=== PATIENT | female | born 1995 | race Caucasian/White ===

== ENCOUNTER 2019-10-30 16:43 | Emergency (ER) | payer BC ==
[~2019-10-30] VITALS: Ht 167.6 cm; Wt 56.0 kg
[2019-10-30 16:50] VITALS: BP 152/86
--- NOTE | 2019-10-30 17:08 | PHYS DOC ---
General Adult EDM: Chief Complaint: COUGH HPI: HPI: ".. I ve been having increase cough.. nothing is coming up.. some fevers.. .. I just feel aches.. tired.. I teach Special Education. And preschool... In the [employer] and they don't do social distancing... 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 Patient states she feels short of breath. No history of previous pulmonary embolisms or coagulopathy. No history of recent travel outside the [facility]. Patient denies any history immunosuppression. Patient follows with Dr. Hilliard. Review of Systems: Review of Systems: Constitutional: History of fever or chills Eyes: Denies change in visual acuity HENT: Denies nasal congestion or sore throat Respiratory: Complains of non-productive cough and shortness of breath Cardiovascular: Denies chest pain or edema GI: Denies abdominal pain, nausea, vomiting, bloody stools or diarrhea : Denies dysuria Musculoskeletal: History of myalgia and arthralgia Integument: Denies rash Neurologic: Denies headache, focal weakness or sensory changes Endocrine: Denies polyuria or polydipsia Lymphatic: Denies swollen glands Psychiatric: Denies depression or anxiety Heart Score: HEART Score for Chest Pain: HEART Score for Chest Pain Response (Comments) Value History Slighlty/Non-Suspicious 0 ECG Normal 0 Age < 45 0 Risk Factors No Risk Factors 0 Troponin < Normal Limit 0 Total 0 Risk Factors: Risk Factors: DM, Current or recent (<one month) smoker, HTN, HLP, family history of CAD, obesity. Risk Scores: Score 0 - 3: 2.5% MACE over next 6 weeks - Discharge Home Score 4 - 6: 20.3% MACE over next 6 weeks - Admit for Clinical Observation Score 7 - 10: 72.7% MACE over next 6 weeks - Early Invasive Strategies Family History: Family History: Noncontributory to presentation Current Medications: Current Meds: See nursing for home meds Allergies: Allergies: No known drug allergies Physical Exam: PE: Constitutional: Well developed, well nourished, moderate acute distress, non- toxic appearance. [] HENT: Normocephalic, atraumatic, bilateral external ears normal, oropharynx moist, no oral exudates, nose swollen turbinates and clear rhinorrhea] Eyes: PERRLA, EOMI, conjunctiva normal, no discharge. [] Neck: Normal range of motion, no tenderness, supple, no stridor. [] Cardiovascular:Heart rate regular rhythm, no murmur [] Lungs & Thorax: Bilateral breath sounds equal apex with scattered wheezes on auscultation [] Abdomen: Bowel sounds normal, soft, no tenderness, no masses, no pulsatile masses. [] Skin: Warm, dry, no erythema, no rash. [] Back: No tenderness, no CVA tenderness. [] Extremities: No tenderness, no cyanosis, no clubbing, ROM intact, no edema. [] No cording appreciated Neurologic: Alert and oriented X 3, normal motor function, normal sensory function, no focal deficits noted. [] Psychologic: Affect anxious, judgement normal, mood normal. [] EKG: EKG: My interpretation EKG shows a sinus rhythm at 87 bpm. No findings acute STEMI or contralateral changes [] Radiology/Procedures: Radiology/Procedures: [[address] [address] IMAGING REPORT Signed PATIENT: ANU CAI ACCOUNT: [id number] : 1995 LOCATION: ER AGE: 24 SEX: F EXAM STATUS: REG ER ORD. PHYSICIAN: ANNELISE MARRERO MD REASON: dyspnea PROCEDURE: CHEST AP ONLY Exam: Chest one view INDICATION: Dyspnea TECHNIQUE: Frontal view of the chest Comparisons: None FINDINGS: The cardiomediastinal silhouette and pulmonary vessels are within normal limits. The lung and pleural spaces are clear. IMPRESSION: No acute cardiopulmonary process. Electronically signed by: Vero Griffith MD (10/30/2019 8:07 PM) [id number] DICTATED AND SIGNED BY: VERO GRIFFITH MD DATE: 10/30/192006 CC: ANNELISE MARRERO MD; CHRISTY ROTHMAN ~ ][address] [address] IMAGING REPORT Signed PATIENT: ANU CAI ACCOUNT: [id number] : 1995 LOCATION: ER AGE: 24 SEX: F EXAM STATUS: REG ER ORD. PHYSICIAN: ANNELISE MARRERO MD REASON: dyspnea PROCEDURE: CHEST AP ONLY Exam: Chest one view INDICATION: Dyspnea TECHNIQUE: Frontal view of the chest Comparisons: None FINDINGS: The cardiomediastinal silhouette and pulmonary vessels are within normal limits. The lung and pleural spaces are clear. IMPRESSION: No acute cardiopulmonary process. Electronically signed by: Vero Griffith MD (10/30/2019 8:07 PM) [id number] DICTATED AND SIGNED BY: VERO GRIFFITH MD DATE: 10/30/192006 CC: ANNELISE MARRERO MD; CHRISTY ROTHMAN ~ Course & Med Decision Making: Course & Med Decision Making Pertinent Labs and Imaging studies reviewed. (See chart for details) Patient self isolate. Suspect patient does have a viral syndrome. Follow-up with primary care. When symptoms resolve and after self-isolation in 2 weeks. Consider getting a rapid COVID testing. Patient to wear a mask covering nose and mouth at all times when outside her home. Must practice social distancing. Follow her schools policy for return to service. Push vitamin C drinks. . Follow-up with urine cultures. Return if any concerns, and becomee markedly tachycardic or hypoxi or dyspnea. Take Keflex 500 mg 3 times a day for urinary tract infection. Use MDI 2 puffs 4 times a day. Follow-up with primary Impression: 1. Viral syndrome- 2. Anemia 3. Urinary tract infection 4. Elevated CRP 13.6 [] Dragon Disclaimer: Miles Disclaimer: This electronic medical record was generated, in whole or in part, using a voice recognition dictation system. Departure Departure: Disposition: 01 HOME/RESIDENCE PRIOR TO ADM Condition: STABLE Referrals: CHRISTY ROTHMAN (PCP) Scripts Albuterol Sulfate (VENTOLIN HFA INHALER) 18 Gm Hfa.aer.ad 2 PUFF IH PRN Q4HRS PRN for FOR ASTHMA for 30 Days, INHALER 0 Refills Prov: ANNELISE MARRERO MD 10/30/19 Cephalexin (KEFLEX) 500 Mg Capsule 500 MG PO TID for UTI for 7 Days, BOX Prov: ANNELISE MARRERO MD 10/30/19 Justification of Admission: Justification of Admission: Justification of Admission Dx: N/A Dragon Disclaimer This chart was dictated in whole or in part using Voice Recognition software in a busy, high-work load, and often noisy Emergency Department environment. It may contain unintended and wholly unrecognized errors or omissions. ANNELISE MARRERO MD Oct 30, 2019 17:08
[2019-10-30] MEDS ORDERED: IV RINGERS SOLUTION,LACTATED 1,000 ML IV SCH (17:11)
[2019-10-30 18:31] LABS: BASO % 0 % (0-3); EOS % 0 % (0-3); HEMATOCRIT 43.2 % (36.0-47.0); HEMOGLOBIN 15.1 g/dL (12.0-15.5); LYMPH % 14 % (24-48); MEAN CORPUSCULAR HEMOGLOBIN 30 pg (25-35); MEAN CORPUSCULAR HGB CONC 35 g/dL (31-37); MEAN CORPUSCULAR VOLUME 85 fL (79-100); MONO # 0.8 x10^3/uL (0.0-1.1); MONO % 11 % (0-9); NEUT # 5.6 x10^3uL (1.8-7.7); NEUT % 75 % (31-73); PLATELET COUNT 198 x10^3/uL (140-400); RED BLOOD COUNT 5.06 x10^6/uL (3.50-5.40); RED CELL DISTRIBUTION WIDTH 12.9 % (11.5-14.5); WHITE BLOOD COUNT 7.5 x10^3/uL (4.0-11.0)
[2019-10-30 18:33] LABS: BGAS PH 7.37 (7.35-7.45)
[2019-10-30 18:33] LABS: BILIRUBIN,URINE NEG (NEG); CLARITY,URINE HAZY; COLOR,URINE STRAW; GLUCOSE,URINE NEG (NEG)
[2019-10-30 18:34] LABS: BACTERIA,URINE MOD /HPF (0-FEW); NITRITE,URINE NEG (NEG); SQUAMOUS EPITHELIAL CELL,UR MOD /LPF; UROBILINOGEN,URINE 0.2 mg/dL (0.2 mg/dL)
[2019-10-30 18:39] LABS: BARBITURATES NEG (NEG); BENZODIAZEPINES NEG (NEG); CANNABINOIDS NEG (NEG); COCAINE NEG (NEG); METHADONE NEG (NEG); OPIATES NEG (NEG); PHENCYCLIDINE NEG (NEG)
[2019-10-30 18:40] LABS: AMPHETAMINE/METHAMPHETAMINE NEG (NEG)
[2019-10-30 18:54] LABS: CALCIUM 9.3 mg/dL (8.5-10.1); CREATININE 0.9 mg/dL (0.6-1.0); GFR 76.3; POTASSIUM 3.4 mmol/L (3.5-5.1)
[2019-10-30 19:06] LABS: ALBUMIN 4.1 g/dL (3.4-5.0); C REACTIVE PROTEIN 13.6 mg/L (0-3.3); DIRECT BILIRUBIN 0.1 mg/dL (0.0-0.2); MAGNESIUM 1.8 mg/dL (1.8-2.4); TOTAL BILIRUBIN 0.5 mg/dL (0.2-1.0); TOTAL PROTEIN 7.4 g/dL (6.4-8.2)
[2019-10-30] MEDS ORDERED: CEPHALEXIN 250 MG CAPSULE PO ONE (19:30)
--- NOTE | 2019-10-30 20:09 | RAD ---
Exam: Chest one view INDICATION: Dyspnea TECHNIQUE: Frontal view of the chest Comparisons: None FINDINGS: The cardiomediastinal silhouette and pulmonary vessels are within normal limits. The lung and pleural spaces are clear. IMPRESSION: No acute cardiopulmonary process. Electronically signed by: Vero Lozoya MD (10/30/2019 8:07 PM) [id number]
[2019-10-30] MEDS ORDERED: CEPH-264 PO (20:49)
[2019-10-30] MEDS ORDERED: ALBU2.5V8 IH (20:50)
--- NOTE | 2019-10-31 06:53 | EKG ---
[facility] ED [facility] [address] [place] [id number] Test Date: 2019-10-30 Test Time: 18:09:25 Pat Name: ANU CAI Department: Room: Gender: F [employer]ove[employer] Helper: : 1995 Requested By: ANNELISE MARRERO Order Number: [id number] Reading MD: Measurements Intervals Dalton Rate: 87 P: 44 WV: 174 QRS: 60 QRSD: 76 T: 22 QT: 360 QTc: 439 Interpretive Statements SINUS RHYTHM NORMAL ECG RI6.02 No previous ECG available for comparison
== END 2019-10-30 21:08 | disposition home or self-care (01) ==
LOC: ER 16:43
DX: B34.9 Viral infection, unspecified (principal); D64.9 Anemia, unspecified; N39.0 Urinary tract infection, site not specified; R79.82 Elevated C-reactive protein (CRP)
CPT/HCPCS: 36415; 71045; 80048; 80076; 80307; 81001; 81025; 82550; 82803; 83605; 83690; 83735; 83880; 84443; 84484; 85025; 85379; 85610; 85730; 86140; 87040; 87086; 93005; 96360; 99285; J7120